=== PATIENT | male | born 1985 | race Hispanic/Latino ===

== ENCOUNTER 2025-11-07 18:38 | Emergency (ER) | payer OTHER ==
[~2025-11-07] VITALS: Ht 182.9 cm; Wt 195.0 kg
--- NOTE | 2025-11-07 19:16 | EKG ---
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
--- NOTE | 2025-11-07 19:22 | HMCIMG ---
EXAMINATION: ULTRASOUND OF THE ABDOMEN (LIMITED) WITH COLOR DOPPLER. CLINICAL HISTORY: Pain in the right upper quadrant. COMPARISON: None. TECHNIQUE: Real-time grayscale ultrasound images of the abdomen. In addition, color Doppler is medically necessary to perform in order to evaluate vascularity and blood flow. FINDINGS: Liver: Bulky in caliber, the right hepatic lobe measures 21.8 cm in the craniocaudal dimension. There is increased echogenicity of the hepatic parenchyma. There is no focal hepatic abnormality or intrahepatic biliary ductal dilatation. There is normal spectral Doppler of the main portal vein. Gallbladder: Within normal limits with normal wall thickness (0.2 cm). No hyperemia or pericholecystic free fluid. There is no cholelithiasis. Common bile duct is normal in caliber, measuring 0.3 cm. Pancreas: Head and body are normal in caliber and echotexture. No calcification or dilated pancreatic duct. The tail is obscured by overlying bowel gas. The right kidney is normal in caliber, the right kidney measures 11.5 x 5.4 x 5.8 cm in its craniocaudal, AP, and transverse dimensions respectively. There is normal renal cortical thickness, and cortical echogenicity. There is no renal calculus or hydronephrosis. IMPRESSION: Hepatomegaly with hepatic steatosis. /[place]
[2025-11-07 19:38] LABS: IMMATURE GRANULOCYTE ABSOLUTE 0.05 K/uL (0-1); NUCLEATED RED BLOOD CELLS 0.0 % (0.0-0.19); PLATELET COUNT (AUTO) 274 K/uL (130-400); RED BLOOD CELL COUNT(AUTO) 4.95 MIL/uL (4.50-6.20); RED CELL DISTRIBUTION WIDTH 12.6 % (11.0-15.5); WHITE BLOOD COUNT (AUTO) 12.1 K/uL (4.8-10.8)
[2025-11-07 19:45] LABS: CREATININE 1.0 mg/dL (0.5-1.3); GLOMERULAR FILTR. RATE CALC 97.0 mL/min (>90); GLUCOSE,RANDOM 98.0 mg/dL (70-105); SODIUM SERUM 138.0 mmol/L (136-145); UREA NITROGEN, BLOOD 8.0 mg/dL (7-18)
[2025-11-07 19:54] LABS: ASPARTATE AMINOTRANSFERASE 16.0 U/L (10-37); TOTAL PROTEIN, SERUM 7.7 g/dL (6.0-8.3)
[2025-11-07 20:45] VITALS: BP 132/66; PULSE 88; RESP 18; TEMP 98.5; O2SAT 99
[2025-11-07] MEDS: 0.9%NACL 1000ML 1,000 ML IV SCH (20:45)
[2025-11-07 21:35] LABS: ADD UA MICROSCOPIC NO; APPEARANCE,URINE CLEAR (CLEAR); GLUCOSE, URINE (UA) NEGATIVE (NEGATIVE); LEUKOCYTE ESTERASE ,URINE NEGATIVE Leu/uL (NEGATIVE); NITRATE,URINE NEGATIVE (NEGATIVE); OCCULT BLOOD,URINE NEGATIVE (NEGATIVE)
[2025-11-07] MEDS ORDERED: FAMO-136 PO (21:48)
[2025-11-07] MEDS ORDERED: KETO10TA2 PO (21:48)
--- NOTE | 2025-11-07 21:49 | ERN ---
ED Note History of Present Illness Stated Complaint: RUQ, EPIGASTRIC PAIN Chief Complaint: Abdominal Pain Time Seen by MD: 18:45 Time Seen by Midlevel: 18:48 Dictation: 39-year-old male with no known medical history coming in with complaints of right upper quadrant pain radiating to the back. Patient states the pain is sharp and intermittent. Patient states it has pain started on Friday. Denies any fever, nausea or vomiting or diarrhea. Denies any urinary symptoms. Allergies: Coded Allergies: No Known Allergies (Unverified Allergy, Unknown, 11/07/25) Past Medical History Past Medical History: No Pertinent History Surgical History: Other Surgical History Other: KNEE Review of System Dictation Constitutional: Negative for fever,chills, and weight loss Eyes: Negative for injury, pain,redness, and discharge ENT: Negative for injury,pain or swelling Cardiovascular: Negative for chest pain, palpitations, and edema Respiratory: Negative for shortness of breath, cough, and wheezing, Abdomen/GI: Complaining of right upper quadrant pain Back: Negative for injury and pain : Negative for injury, bleeding and discharge MS/Extremity: Negative for injury and deformity Skin: Negative for rash, and discoloration Neuro: Negative for headache, weakness, numbness, tingling, and seizure Psych: Negative for suicide ideation, homicidal ideation, and hallucinations Review of Systems: was completed Initial Vital Sign VS Vital Signs Date Time Temp Pulse Resp B/P (MAP) Pulse Ox O2 Delivery O2 Flow Rate FiO2 11/07/25 18:39 98.8 97 16 186/113 99 Room Air 0 11/07/25 20:45 21 Physical Exam Dictation General: awake, alert, NAD Head/Face: Normocephalic, atraumatic Eyes: PERRL, EOMI, vision at baseline ENT: oral cavity clear, TMs clear, no signs of infection Neck: Trachea midline, supple, no nuchal rigidity Cardiovascular: RRR, normal S1/S2, No MRGs, no JVD Respiratory: CTAB, no respiratory distress, No rales or wheezes Abdomen: Soft, mild tenderness to palpation to the right upper quadrant , non- distended, normal bowel sounds, no guarding or rebound. Skin: Warm, dry, normal turgor, no rash MS/Extremity: Pulses equal, no cyanosis, neurovascular intact, FROM Neuro: COAx4, GCS 15, strength 5/5, CN 2-12 intact, normal cerebellar exam, normal gait, Psych: Normal behavior, mood, and affect normal Results (Laboratory/Radiology) Laboratory/Radiology Laboratory Tests Test 11/07/25 19:30 11/07/25 21:19 White Blood Count 12.1 K/uL (4.8-10.8) H Red Blood Count 4.95 MIL/uL (4.50-6.20) Hemoglobin 14.7 g/dL (14.0-18.0) Hematocrit 45.0 % (42-54) Mean Corpuscular Volume 90.9 fL (79-99) Mean Corpuscular Hemoglobin 29.7 pg (27.0-33.0) Mean Corpuscular Hemoglobin Concent 32.7 g/dL (32.0-36.0) Red Cell Distribution Width 12.6 % (11.0-15.5) Platelet Count 274 K/uL (130-400) Mean Platelet Volume 10.3 fL (7.5-10.5) Immature Granulocyte % (Auto) 0.4 % (0-1) Neutrophils (%) (Auto) 66.7 % (40.0-77.0) Lymphocytes (%) (Auto) 24.1 % (21.0-51.0) Monocytes (%) (Auto) 5.3 % (3.0-13.0) Eosinophils (%) (Auto) 3.1 % (0.0-8.0) Basophils (%) (Auto) 0.4 % (0.0-5.0) Neutrophils # (Auto) 8.1 K/uL (1.8-7.7) H Lymphocytes # (Auto) 2.9 K/uL (1.0-4.8) Monocytes # (Auto) 0.6 K/uL (0.1-1.0) Eosinophils # (Auto) 0.37 K/uL (0.00-0.70) Basophils # (Auto) 0.05 K/uL (0.00-0.20) Absolute Immature Granulocyte (auto 0.05 K/uL (0-1) Nucleated Red Blood Cells 0.0 % (0.0-0.19) Sodium Level 138 mmol/L (136-145) Potassium Level 3.8 mmol/L (3.5-5.1) Chloride Level 101 mmol/L (101-111) Carbon Dioxide Level 32 mmol/L (21-32) Blood Urea Nitrogen 8 mg/dL (7-18) Creatinine 1.0 mg/dL (0.5-1.3) Glomerular Filtration Rate Calc 97 mL/min (>90) Random Glucose 98 mg/dL (70-105) Total Calcium 9.0 mg/dL (8.5-10.1) Total Bilirubin 0.5 mg/dL (0.2-1.0) Direct Bilirubin 0.1 mg/dL (0.0-0.3) Aspartate Amino Transf (AST/SGOT) 16 U/L (10-37) Alanine Aminotransferase (ALT/SGPT) 30 U/L (12-78) Alkaline Phosphatase 80 U/L (50-136) Troponin I High Sensitivity 5 ng/L (4-75) Total Protein 7.7 g/dL (6.0-8.3) Albumin 3.7 g/dL (3.5-5.0) Lipase 24 U/L (16-77) Urine Color LIGHT-YELLOW (YELLOW) Urine Appearance CLEAR (CLEAR) Urine pH 6.5 (5.0-8.0) Urine Specific [place] 1.020 (1.001-1.031) Urine Protein NEGATIVE mg/dL (NEGATIVE) Urine Glucose (UA) NEGATIVE mg/dL (NEGATIVE) Urine Ketones NEGATIVE mg/dL (NEGATIVE) Urine Occult Blood NEGATIVE (NEGATIVE) Urine Nitrate NEGATIVE (NEGATIVE) Urine Bilirubin NEGATIVE mg/dL (NEGATIVE) Urine Urobilinogen 0.2 mg/dL (0.2-1.0) Urine Leukocyte Esterase NEGATIVE [place]/uL Labs Reviewed?: Yes Ultrasound Comment: [place] [id number] [place] [address] IMAGING REPORT Signed PATIENT: HOLDEN GARCIA MR#: [id number] : 1985 SEX: M AGE: 39 LOCATION: [facility] ORDER 51 STATUS: REG ER REPORT#: [id number] SERVICE 49 REASON: ruq pain ORDERING PHYSICIAN: RUBINA CORDERO CNP PROCEDURE: ABDRUQLTD - US ABDOMINAL RUQ\LTD EXAMINATION: ULTRASOUND OF THE ABDOMEN (LIMITED) WITH COLOR DOPPLER. CLINICAL HISTORY: Pain in the right upper quadrant. COMPARISON: None. TECHNIQUE: Real-time grayscale ultrasound images of the abdomen. In addition, color Doppler is medically necessary to perform in order to evaluate vascularity and blood flow. FINDINGS: Liver: Bulky in caliber, the right hepatic lobe measures 21.8 cm in the craniocaudal dimension. There is increased echogenicity of the hepatic parenchyma. There is no focal hepatic abnormality or intrahepatic biliary ductal dilatation. There is normal spectral Doppler of the main portal vein. Gallbladder: Within normal limits with normal wall thickness (0.2 cm). No hyperemia or pericholecystic free fluid. There is no cholelithiasis. Common bile duct is normal in caliber, measuring 0.3 cm. Pancreas: Head and body are normal in caliber and echotexture. No calcification or dilated pancreatic duct. The tail is obscured by overlying bowel gas. The right kidney is normal in caliber, the right kidney measures 11.5 x 5.4 x 5.8 cm in its craniocaudal, AP, and transverse dimensions respectively. There is normal renal cortical thickness, and cortical echogenicity. There is no renal calculus or hydronephrosis. IMPRESSION: Hepatomegaly with hepatic steatosis. /[place] DICTATED BY: ALIX ANDRADE Jr., MD DATE: 11/07/252019 ELECTRONICALLY SIGNED BY: ALIX ANDRADE Jr., MD DATE: 11/07/252019 ED Course ED Course Orders Procedure Category Date Status Time Cbc With Differential LAB 11/07/25 Complete 18:50 Basic Metabolic Panel LAB 11/07/25 Complete 18:50 Lipase LAB 11/07/25 Complete 18:50 Hepatic Function Panel LAB 11/07/25 Complete 18:50 Urinalysis Profile LAB 11/07/25 Complete 18:50 Us Abdominal Ruq\Ltd US 11/07/25 Resulted 18:50 12 Lead Ekg Tracing- EKG 11/07/25 Complete Technical 18:50 Troponin I High LAB 11/07/25 Complete Sensitivity 18:50 0.9%Nacl 1000ml (Ns PHA 11/07/25 In Process 1000ml) 18:50 Ondansetron 4mg Inj PHA 11/07/25 In Process (Zofran 4mg Inj) 19:00 Ketorolac PHA 11/07/25 In Process Tromethamine 15mg/Ml 19:00 Current Medications Medications (Trade) Dose Ordered Sig/Janice Route PRN Reason Start Time Stop Time Status Last Admin Dose Admin Ketorolac Tromethamine (toRADol) 15 mg ONCE IV 11/07/25 19:00 11/07/25 23:00 11/07/25 20:45 Ondansetron HCl (zoFRAN 4MG INJ) 4 mg ONCE IVP 11/07/25 19:00 11/07/25 23:00 11/07/25 20:45 Sodium Chloride 1,000 ml @ 1,000 mls/hr Q1H IV 11/07/25 18:50 12/07/25 18:49 11/07/25 21:32 Vital Signs Date Time Temp Pulse Resp B/P (MAP) Pulse Ox O2 Delivery O2 Flow Rate FiO2 11/07/25 20:45 98.4 88 18 132/66 99 Room Air* 0 21 11/07/25 18:39 98.8 97 16 186/113 99 Room Air 0 Medical Decision Making MDM MDM: 39-year-old male with no known medical history coming in with complaints of right upper quadrant pain radiating to the back. Patient states the pain is sharp and intermittent. Patient states it has pain started on Friday. Denies any fever, nausea or vomiting or diarrhea. Denies any urinary symptoms.CBC shows white count of 12, no anemia, no thrombocytopenia. Chemistry shows no electrolyte abnormality. Normal kidney function. Normal T bili. No transaminitis. Normal lipase. Troponin times 1-. EKGs shows no ST elevation or dysrhythmias. UA shows no evidence of urinary tract infection or hematuria. Ultrasound done to rule out any cholecystitis, there is no free fluid, no pericholecystic fluid, no gallbladder stones. Just shows hepatic steatosis and hepatomegaly After fluids and Toradol patient states he feels better. Patient states his pain has subsided. Educated on findings and educated follow up with the PCP for the hepatic steatosis. Educated on his red flag symptoms of when to return back to the emergency room like fevers, severe abdominal pain, nausea and vomiting. Patient verbalized understanding, answered all questions. Differential diagnosis: Pancreatitis, gastritis, GERD, cholecystitis, cholelithiasis, nephrolithiasis Rationale: Tests considered and ordered secondary to shared decision making include: Previous outside records reviewed: Old ER visits. Risk of complication and/or morbidity or mortality of patient management: None Medications-Per medication reconciliation Need for hospitalization: Patient does not meet criteria for hospitalization. Need for emergency major/minor surgery: No There are no social concerns with this patient. Prescription drug management Prescriptions will include symptomatic care Patient's prior external medical records from other ER visits were reviewed by me as indicated. Prior testing and results from previous visits were reviewed. Prior tests were taken into account with medical decision making and resource utilization, independent historian/historians were used to obtain complete medical history. I independently interpreted the test that were performed, results were reviewed by me and considered findings on radiology if ordered. Medical management and examination interpretation discussions were had by me with other qualified healthcare professionals as indicated for the patient's care. DX & DISP Disposition: Discharge Departure Impression: Primary Impression: Right upper quadrant pain Additional Impressions: Hepatic steatosis, Gastritis Condition: Stable Scripts Famotidine (Pepcid) 20 Mg Tablet 1 TAB PO BID for 30 Days, #60 TAB 0 Refills Prov: RUBINA CORDERO CNP 11/07/25 Ketorolac Tromethamine (Ketorolac Tromethamine) 10 Mg Tablet 1 TAB PO Q6HPRN PRN for pain for 3 Days, #9 TAB 0 Refills Prov: RUBINA CORDERO CNP 11/07/25 Additional Instructions: Your blood work does not show any signs of infection, pancreatitis or any liver problems. Your ultrasound shows a fatty liver. Follow up with your primary care doctor for further evaluation. If you develop any fevers, severe abdominal pain, nausea or vomiting please return back to the emergency room. Referrals: SELF,REFERRAL (PCP) VALERIE CHAO MD Time of Disposition: 21:46 I have reviewed the case, and I agree with, Diagnosis and Plan RUBINA CORDERO [facility] Nov 07, 2025 21:49
== END 2025-11-07 21:59 | disposition home or self-care (01) ==
LOC: EDH 18:38
DX: K29.70 Gastritis, unspecified, without bleeding (principal); K76.0 Fatty (change of) liver, not elsewhere classified
CPT/HCPCS: 99285; 96374; 76705; 96375; 80076; 84484; 80048; 83690; 85025; 81003; 36415; 93005; J1885; J2405